=== PATIENT | male | born 1955 | race African-American/Black ===

== ENCOUNTER 2024-07-27 12:04 | Inpatient (IN) | payer OTHER ==
[2024-07-27 12:39] VITALS: BMI 19.2
[2024-07-27] MEDS ORDERED: NALOXONE (NARCAN) HCL 4 MG/0.1 ML SPRAY NS PRN (13:55)
[2024-07-27] MEDS ORDERED: BENZOCAINE/MENTHOL (CHLORASEPTIC ) LOZENGE MM PRN (13:55)
[2024-07-27] MEDS ORDERED: NICOTINE POLACRILEX 2 MG GUM BUC PRN (13:55)
[2024-07-27] MEDS ORDERED: LOPERAMIDE HCL 2 MG CAPSULE PO PRN (13:55)
[2024-07-27] MEDS ORDERED: MAG HYDROX/AL HYDROX/SIMETH 30 ML UNIT-DOSE CUP PO PRN (13:55)
[2024-07-27] MEDS ORDERED: P-EPHED 60MG/TRIPROLIDI 2.5MG TABLET PO PRN (13:55)
[2024-07-27] MEDS ORDERED: NICOTINE POLACRILEX 2 MG LOZENGE BC PRN (13:55)
[2024-07-27] MEDS ORDERED: NALOXONE HCL 0.4 MG/ML VIAL IM PRN (13:55)
[2024-07-27] MEDS ORDERED: ONDANSETRON *ODT* 4 MG TABLET SL PRN (13:55)
[2024-07-27] MEDS ORDERED: MAGNESIUM HYDROX 2400MG/30ML ORAL SUSPENSION 30 ML CUP PO PRN (13:55)
[2024-07-27] MEDS ORDERED: BISMUTH SUBSALICYLATE 524 MG/30 ML PO PRN (13:55)
[2024-07-27] MEDS ORDERED: POLYETHYLENE GLYCOL (HEALTHYLAX) 3350 17 GM PACKET PO PRN (13:55)
[2024-07-27] MEDS ORDERED: BENZONATATE 200 MG CAPSULE PO PRN (13:55)
[2024-07-27] MEDS ORDERED: guaiFENesin 600 MG TABLET.ER (FP) PO PRN (13:55)
[2024-07-27] MEDS: cloNIDine HCL 0.1 MG TABLET PO PRN (16:09)
[2024-07-27] MEDS: MELATONIN 5 MG TABLETS PO SCH (22:56)
[2024-07-27] MEDS: THIAMINE 100 MG TABLET PO SCH (22:57)
[2024-07-28 10:24] LABS: HEMATOCRIT 32.5 % (35.4-49); HEMOGLOBIN 10.8 GM/dL (11.7-16.9); MCH 31.1 pg (25.7-33.7); MCHC 33.3 g/dl (32.0-35.9); MEAN CELL VOLUME 93.4 fl (80-96); PLATELET COUNT 332 10^3/uL (134-434); POTASSIUM 4.4 mmol/L (3.5-5.1); RBC 3.48 M/mm3 (4.00-5.60); RDW 16.3 % (11.9-15.9); WHITE BLOOD COUNT 5.2 K/mm3 (4.0-10.0)
[2024-07-28 10:27] LABS: CALCIUM 8.7 mg/dL (8.5-10.1)
[2024-07-28 10:28] LABS: BLOOD UREA NITROGEN 9.8 mg/dL (7-18)
[2024-07-28 10:31] LABS: CREATININE 0.8 mg/dL (0.55-1.3)
[2024-07-28 10:33] LABS: BILIRUBIN,TOTAL 0.5 mg/dL (0.2-1); TOT PROT 6.4 g/dl (6.4-8.2)
[2024-07-28] MEDS: PRENATAL VITAMINS W/ FOLIC ACID TABLET (FP) PO SCH (10:34)
[2024-07-28] MEDS: amLODIPine BESYLATE 10 MG TABLET (FP) PO SCH (16:37)
[2024-07-29] MEDS ORDERED: LORazepam 1 MG TABLET PO PRN (10:47)
[2024-07-29] MEDS: LORazepam 2 MG TABLET PO SCH ×2 (11:41→16:56)
[2024-07-29] MEDS: LORazepam 1 MG TABLET PO SCH (22:26)
[2024-07-30] MEDS: IBUPROFEN 400 MG TABLET (FP) PO PRN (10:20)
[2024-07-30] MEDS: IBUPROFEN 600 MG TABLET (FP) PO PRN (19:44)
[2024-07-31] MEDS: LORazepam 1 MG TABLET PO SCH (05:51)
[2024-07-31] MEDS: ACETAMINOPHEN 325 MG TABLET (FP) PO PRN (10:11)
[2024-07-31] MEDS: HYDROCHLOROTHIAZIDE 12.5 MG CAPSULE (FP) PO SCH (11:08)
[2024-08-01] MEDS ORDERED: LORazepam 0.5 MG TABLET PO PRN
[2024-08-01] MEDS: LORazepam 0.5 MG TABLET PO SCH (05:39)
[2024-08-01] MEDS: HYDROCHLOROTHIAZIDE 12.5 MG CAPSULE (FP) PO ONE (12:53)
[2024-08-02] MEDS: LORazepam 0.5 MG TABLET PO ONE (05:19)
[2024-08-02] MEDS: HYDROCHLOROTHIAZIDE 25 MG TABLET (FP) PO SCH (10:19)
[2024-08-02 21:37] VITALS: RESP 16
[2024-08-03 08:39] VITALS: BP 104/64; PULSE 75; TEMP 97.5
== END 2024-08-03 11:40 | disposition home or self-care (01) | DRG 897 ==
LOC: YASAS 12:04 → Y3N 15:33
PROVIDERS: ADMIT Allergy & Immunology; ATTEND Surgery
PROC: HZ2ZZZZ Detoxification Services for Substance Abuse Treatment (ICD-10-PCS; principal; 2024-07-27)
DX: F10.230 Alcohol dependence with withdrawal, uncomplicated (principal); F17.210 Nicotine dependence, cigarettes, uncomplicated; I10 Essential (primary) hypertension
CPT/HCPCS: 36415; 80053; 80305; 85027; 86780; 87811; 93005; 93010

== ENCOUNTER 2024-08-03 11:55 | Inpatient (IN) | payer OTHER ==
[2024-08-03] MEDS ORDERED: BENZOCAINE/MENTHOL (CHLORASEPTIC ) LOZENGE MM PRN (12:28)
[2024-08-03] MEDS ORDERED: MAG HYDROX/AL HYDROX/SIMETH 30 ML UNIT-DOSE CUP PO PRN (12:28)
[2024-08-03] MEDS ORDERED: METHOCARBAMOL 500 MG TABLET PO PRN (12:28)
[2024-08-03] MEDS ORDERED: IBUPROFEN 400 MG TABLET (FP) PO PRN (12:28)
[2024-08-03] MEDS ORDERED: BENZONATATE 200 MG CAPSULE PO PRN (12:28)
[2024-08-03] MEDS ORDERED: guaiFENesin 600 MG TABLET.ER (FP) PO PRN (12:28)
[2024-08-03] MEDS ORDERED: hydrOXYzine PAMOATE 25 MG CAPSULE (FP) PO PRN (12:28)
[2024-08-03] MEDS ORDERED: LOPERAMIDE HCL 2 MG CAPSULE PO PRN (12:28)
[2024-08-03] MEDS: THIAMINE 100 MG TABLET PO SCH (22:13)
[2024-08-03] MEDS: MELATONIN 5 MG TABLETS PO SCH (22:13)
[2024-08-04] MEDS: PRENATAL VITAMINS W/ FOLIC ACID TABLET (FP) PO SCH (06:04)
[2024-08-04] MEDS: IBUPROFEN 600 MG TABLET (FP) PO PRN (08:50)
[2024-08-06] MEDS: amLODIPine BESYLATE 10 MG TABLET (FP) PO SCH (17:51)
[2024-08-06] MEDS: HYDROCHLOROTHIAZIDE 25 MG TABLET (FP) PO SCH (17:51)
[2024-08-06] MEDS: MAGNESIUM HYDROX 2400MG/30ML ORAL SUSPENSION 30 ML CUP PO PRN (21:05)
[2024-08-09] MEDS: POLYETHYLENE GLYCOL (HEALTHYLAX) 3350 17 GM PACKET PO PRN (06:16)
[2024-08-09] MEDS ORDERED: NICOTINE POLACRILEX 4 MG LOZENGE BC PRN (10:57)
[2024-08-09] MEDS ORDERED: NALTREXONE HCL 50 MG TABLET PO SCH (11:00)
[2024-08-09] MEDS: NICOTINE 21 MG/24 HOURS TOPICAL PATCH TD SCH (12:45)
[2024-08-09] MEDS: NALTREXONE HCL 50 MG TABLET PO ONE (14:00)
[2024-08-10] MEDS: NALTREXONE HCL 50 MG TABLET PO SCH (09:57)
[2024-08-10 13:28] LABS: INR 0.96 (0.83-1.09); PROTHROMBIN TIME (PATIENT) 11.1 SEC (9.7-13.0)
[2024-08-10 13:46] LABS: MAGNESIUM 2.2 mg/dL (1.8-2.4)
[2024-08-12] MEDS: LACTULOSE 20 GM/30 ML UDC (FOR ORAL USE ONLY) PO SCH (14:14)
[2024-08-12] MEDS: ATORVASTATIN CA 10 MG TABLET (FP) PO SCH (21:13)
[2024-08-14] MEDS: BENZOCAINE 20 % GEL TUBE MM PRN (10:05)
[2024-08-14] MEDS: ACETAMINOPHEN 325 MG TABLET (FP) PO PRN (13:33)
[2024-08-16 06:37] VITALS: RESP 20
[2024-08-17 06:33] VITALS: BP 134/92; PULSE 65; TEMP 98.2
[2024-08-17] MEDS: NALOXONE (NYS OPIOID OVERDOSE PROGRAM) 4 MG/0.1 ML SPRAY NS PRN (09:17)
== END 2024-08-17 09:27 | disposition home or self-care (01) | DRG 895 ==
LOC: YASAS 11:55 → Y3NR 12:05 → Y3E 08-04 07:15
PROVIDERS: ADMIT Psychiatry & Neurology Pain Medicine; ATTEND Psychiatry & Neurology Pain Medicine
PROC: HZ42ZZZ Group Counseling for Substance Abuse Treatment, Cognitive-Behavioral (ICD-10-PCS; principal; 2024-08-03)
DX: F10.20 Alcohol dependence, uncomplicated (principal); E72.20 Disorder of urea cycle metabolism, unspecified; F17.210 Nicotine dependence, cigarettes, uncomplicated; E78.5 Hyperlipidemia, unspecified; I10 Essential (primary) hypertension; K08.89 Other specified disorders of teeth and supporting structures
CPT/HCPCS: 36415; 80061; 82140; 82652; 83735; 85610